=== PATIENT | male | born 2000 | race African-American/Black ===

== ENCOUNTER 2023-05-17 03:03 | Emergency (ER) | payer SELFPAY ==
[~2023-05-17] VITALS: Ht 182.9 cm; Wt 82.0 kg
[2023-05-17 03:09] VITALS: O2SAT 98
[2023-05-17 04:00] LABS: HEMATOCRIT. 53.1 % (42.0-52.0); HEMOGLOBIN. 17.5 g/dL (14.0-18.0); MEAN CORPUSCULAR HEMOGLOBIN 29.4 pg (28.0-32.0); PLATELET 329 x1000/uL (130-400); RED BLOOD CELL COUNT 5.97 mill/uL (4.7-6.1); RED CELL DISTRIBUTION WIDTH 14.5 % (11.6-14.6); WHITE BLOOD COUNT 10.2 x1000/uL (4.5-11.0)
[2023-05-17 04:08] LABS: CHLORIDE 100 mEq/L (98-107); INDEX HEMOLYSI 1 (1-3); INDEX ICTERIC 1 (1-4); INDEX LIPEMIC 1 (1-3); POTASSIUM 4.1 mEq/L (3.5-5.1); SODIUM 133 mEq/L (136-145)
[2023-05-17 04:16] LABS: ALANINE AMINOTRANSFERASE 25 IU/L (13-61); ALBUMIN 5.1 g/dL (3.4-5.0); ASPARTATE AMINOTRANSFERASE 17 IU/L (15-37); BILIRUBIN TOTAL 1.6 mg/dL (0.1-1.0); CALCIUM 10.4 mg/dL (8.5-10.1); CARBON DIOXIDE 19 mEq/L (21-32); CREATININE 2.9 mg/dL (0.6-1.3); GLUCOSE 116 mg/dL (70-105); PROTEIN TOTAL 10.1 g/dL (6.0-8.3); UREA NITROGEN BLOOD 32 mg/dL (7-21)
[2023-05-17 04:25] LABS: DIFFERENTIAL COMMENT 1
[2023-05-17] MEDS ORDERED: ONDANSETRON 4MG ODT PO STA (05:35)
[2023-05-17] MEDS ORDERED: ACETAMINOPHEN 325MG TABLET PO STA (05:35)
[2023-05-17] MEDS ORDERED: ONDA4TAB50 MT (05:38)
[2023-05-17 06:20] VITALS: BP 119/87; PULSE 85; RESP 17; TEMP 98.3
[2023-05-17 07:37] LABS: PLATELET ESTIMATE NORMAL
== END 2023-05-17 06:24 | disposition home or self-care (01) ==
LOC: ER 03:03
DX: R11.2 Nausea with vomiting, unspecified (principal); N28.9 Disorder of kidney and ureter, unspecified
CPT/HCPCS: 99283; 80053; 85025; 36415; Q0162